=== PATIENT | male | born 1990 | race Caucasian/White ===

== ENCOUNTER 2025-03-07 13:31 | Emergency (ER) | payer BC, SELFPAY ==
[2025-03-07 13:43] VITALS: BP 127/85; PULSE 55; RESP 18; TEMP 36.7; O2SAT 98
[2025-03-07] MEDS: Ibuprofen 600 MG TAB PO (14:07)
[2025-03-07] MEDS: Acetaminophen 500 MG TAB 1000 MG PO (14:07)
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
--- NOTE | 2025-03-07 14:24 | DI.RAD_ITS ---
Exam(s) XR KNEE RT 3V AP,LAT,RAJ EXAM: XR KNEE RT 3V AP,LAT,RAJ CLINICAL HISTORY: LEG INJURY. TECHNIQUE: 2D digital imaging was performed. Three views. COMPARISON: CR XR TIB/FIB RT from 03/07/2025 FINDINGS: BONES: No acute fracture is present. No bony destructive lesion is seen. JOINTS: The knee is normally aligned. No joint effusion is seen. Joint spaces are maintained. SOFT TISSUE: Normal. IMPRESSION: Unremarkable radiographs of the right knee. DATA REPOSITORY: RADIATION DOSE DELIVERED:
--- NOTE | 2025-03-07 14:26 | DI.RAD_ITS ---
Exam(s) XR TIB/FIB RT EXAM: XR TIB/FIB RT CLINICAL HISTORY: LEG INJURY. TECHNIQUE: 2D digital imaging was performed. Two views. COMPARISON: No exams were available for comparison FINDINGS: BONES: No acute fracture is present. No bony destructive lesion is seen. Visualized portion of knee and ankle joints are unremarkable. SOFT TISSUE: Normal. IMPRESSION: Unremarkable radiographs of the right tibia and fibula. DATA REPOSITORY: RADIATION DOSE DELIVERED:
[2025-03-07 14:49] VITALS: BP 122/71; PULSE 58; RESP 18; O2SAT 99
== END 2025-03-07 14:50 | disposition home or self-care (01) ==
PROVIDERS: Emergency Provider Emergency Medicine
DX: S80.11XA Contusion of right lower leg, initial encounter (principal); Y93.55 Activity, bike riding; V18.0XXA Pedal cycle driver injured in noncollision transport accident in nontraffic accident, initial encounter; M25.561 Pain in right knee
CPT/HCPCS: 99283; 99284; 73562; 73590